=== PATIENT | male | born 1970 ===

== ENCOUNTER 2019-12-21 15:47 | Emergency (ER) | payer MEDICARE, BC, MEDICAID, SELFPAY ==
[2019-12-21 15:51] VITALS: BP 142/89; PULSE 77; RESP 18; TEMP 36.6; O2SAT 100; BMI 35.7
--- NOTE | 2019-12-21 15:56 | ECG_ITS ---
Measurements Intervals [place] Rate: 78 P: [place]: 0 QRS: 48 QRSD: 82 T: 70 QT: 364 QTc: 416 SINUS RHYTHM INDETERMINATE AXIS No previous ECG available for comparison Electronically Signed On 12-21-2019 18:10:35 CDT by Adriana Anna M.D. [id number]
--- NOTE | 2019-12-21 15:56 | XR_ITS ---
WS: [id number] Portable AP upright chest, 12/21/2019 Clinical Data: chest pain Comparison: None. Findings: No nodules, masses or effusions are seen. The heart is normal. The pulmonary vascularity is not increased. No pneumonia or pneumothorax is seen. XR/XR chest 1V portable [id number] Impression: Negative chest.
--- NOTE | 2019-12-21 16:03 | ED_ITS ---
Entered by Ewa Cool, acting as scribe for Higinio Horton DO Documented by User: Olaf Barone DO 12/21/19 21:48 HPI - Chest Pain General: Chief Complaint: Chest Pain Stated Complaint: CP, SOB, coughing up blood Time Seen by Provider: 12/21/19 16:05 [facility] PFSH: Social History Smoking and tobacco status: former smoker Course Vital Signs: Vital signs: Vital Signs Temperature 97.8 F 12/21/19 15:51 Pulse Rate 86 12/21/19 21:50 Respiratory Rate 18 12/21/19 21:50 Blood Pressure 96/64 12/21/19 21:50 Pulse Oximetry 97 12/21/19 21:50 MDM - Chest Pain MDM Narrative: Medical decision making narrative: 49-year-old male with pleuritic chest pain. He has had a cough. He says he coughed up some blood this morning. His physician was worried about a blood clot in his lung. His EKG shows a sinus rhythm with normal axis and no ST changes x2. His troponin d id not change at 2 hours, and is normal essentially. His laboratory is not remarkable otherwise. His CTA of the chest shows no pulmonary embolus, and no other acute finding including a pneumonia or pneumonitis. He will be treated with steroids, his inhaler, and antibiotics. Lab Data: Labs: Lab Results 12/21/19 12/21/19 12/21/19 Range/Units 16:15 16:15 16:15 WBC 9.6 (4.0-10.0) 10^3/ uL RBC 5.87 H (4.1-5.3) 10^6/u L Hgb 18.1 H (11.7-16.6) g/dL Hct 52.8 H (42.0-52.0) % MCV 89.9 (80-94) fL MCH 30.8 (28.0-34.0) pg MCHC 34.3 (30.0-36.0) g/dL RDW 12.9 (12.1-15.1) % Plt Count 246 (130-400) 10^3/c mm MPV 10.5 H (7.4-10.4) fL Neut % (Auto) 62.6 % Lymph % (Auto) 25.5 % [place] % (Auto) 8.4 % Eos % (Auto) 2.7 % Baso % (Auto) 0.5 % Neut # (Auto) 6.0 (1.8-7.7) 10^3/u L Lymph # (Auto) 2.5 (0.8-4.8) 10^3/u L [place] # (Auto) 0.8 (0.2-0.9) 10^3/u L Eos # (Auto) 0.3 (0.0-0.8) 10^3/u L Baso # (Auto) 0.1 (0.0-0.1) 10^3/u L Nucleated RBC % (a uto) 0 % Nucleated RBCs # 0.0 /100WBC Sodium 138 (136-145) mmol/L Potassium 4.4 (3.5-5.1) mmol/L Chloride 100 (98-107) mmol/L Carbon Dioxide 25 (22-29) mmol/L Anion Gap 17.4 (5-19) BUN 20 (6-20) mg/dL Creatinine 1.1 (0.7-1.2) mg/dL GFR Calculation 71.4 L (90-130) mL/min Glucose 108 (65-115) mg/dL Calculated Osmolal ity 283 L (285-295) mOsm/k g Calcium 10.5 (8.5-10.5) mg/dL Total Bilirubin 0.6 (0.15-1.2) mg/dL AST 29 (0-40) U/L ALT 34 (0-41) U/L Alkaline Phosphata se 84 (40-130) IU/L Troponin T Baselin e 8 (0-15) ng/mL Troponin T 120 Min [place] (0-15) ng/mL Delta Troponin T (0-10) ABS# Total Protein 7.8 (6.6-8.7) g/dL Albumin 4.6 (3.5-5.2) g/dL Globulin 3.2 (1.3-4.6) g/dL 12/21/19 Range/Units 18:22 WBC (4.0-10.0) 10^3/ uL RBC (4.1-5.3) 10^6/u L Hgb (11.7-16.6) g/dL Hct (42.0-52.0) % MCV (80-94) fL MCH (28.0-34.0) pg MCHC (30.0-36.0) g/dL RDW (12.1-15.1) % Plt Count (130-400) 10^3/c mm MPV (7.4-10.4) fL Neut % (Auto) % Lymph % (Auto) % [place] % (Auto) % Eos % (Auto) % Baso % (Auto) % Neut # (Auto) (1.8-7.7) 10^3/u L Lymph # (Auto) (0.8-4.8) 10^3/u L [place] # (Auto) (0.2-0.9) 10^3/u L Eos # (Auto) (0.0-0.8) 10^3/u L Baso # (Auto) (0.0-0.1) 10^3/u L Nucleated RBC % (a uto) % Nucleated RBCs # /100WBC Sodium (136-145) mmol/L Potassium (3.5-5.1) mmol/L Chloride (98-107) mmol/L Carbon Dioxide (22-29) mmol/L Anion Gap (5-19) BUN (6-20) mg/dL Creatinine (0.7-1.2) mg/dL GFR Calculation (90-130) mL/min Glucose (65-115) mg/dL Calculated Osmolal ity (285-295) mOsm/k g Calcium (8.5-10.5) mg/dL Total Bilirubin (0.15-1.2) mg/dL AST (0-40) U/L ALT (0-41) U/L Alkaline Phosphata se (40-130) IU/L Troponin T Baselin e (0-15) ng/mL Troponin T 120 Min [place] 7.19 (0-15) ng/mL Delta Troponin T -0.81 L (0-10) ABS# Total Protein (6.6-8.7) g/dL Albumin (3.5-5.2) g/dL Globulin (1.3-4.6) g/dL Discharge Plan Discharge Patient Disposition: Home, Self-Care Clinical Impression: Atypical chest pain, Bronchitis Condition: Stable Prescriptions: New prednisone 20 mg tablet 60 mg PO DAILY Qty: 15 RF: 0 doxycycline hyclate 100 mg capsule 100 mg PO BID 7 Days Qty: 14 RF: 0 [place] 7.5-325 mg tablet 1 tab PO TID PRN (Reason: pain) Qty: 10 RF: 0 No Action albuterol sulfate 2.5 mg /3 mL (0.083 %) solution for nebulization 2.5 mg inhalation Q6H PRN (Reason: Wheezing) RF: 0 ibuprofen 800 mg tablet 800 mg PO TID RF: 0 lisinopril 20 mg tablet 20 mg PO DAILY RF: 0 pantoprazole 40 mg tablet,delayed release (DR/EC) 40 mg PO DAILY RF: 0 nicotine 21 mg/24 hr patch 24 hour See Rx Instructions .ROUTE .COMPLEX RF: 0 gabapentin 300 mg capsule 300 mg PO TID RF: 0 Discharge Orders: Discharge Order (Routine); Ordered 12/21/19 Ordered By: Olaf Barone Discharge Diet: Usual diet Discharge Activity: Increase activity as tolerated Patient Instructions: Pleurisy (ED), Acute Bronchitis (ED) Activity Restrictions/Additional Instructions: Return for worsening pain despite treatment, worsening shortness of breath, other concerning symptoms. Return also for fever greater than 100 despite 3 doses of antibiotics. Use your inhaler every 4 hours while awake scheduled the next 2 days, then as needed. Discharge Date/Time: 12/21/19 21:51 Coding Level of Care Code ED Recruiting Associate for Chg Fwd Documented by User: Higinio Horton DO 12/23/19 23:29 HPI - Chest Pain General: Chief Complaint: Chest Pain Stated Complaint: CP, SOB, coughing up blood Time Seen by Provider: 12/21/19 16:05 Source: patient Mode of arrival: ambulatory Limitations: no limitations History of Present Illness: HPI narrative: 49-year-old male presents with complaints of chest pain and productive cough with some blood in the cough at times mostly streaking of blood. She denies any fever sweats or chills. MD complaint: chest pain and other (shortness of breath, coughing up blood) Onset (ago): day(s) Timing of current episode: still present Prior episodes: Yes Onset: during rest Context: recent illness (pt was recently admitted at [facility] for the same symptoms) Associated symptoms: Reports dyspnea; Deny abdominal pain, fever(s), nausea or vomiting Review of Systems Const: Denies: fever, chills, body aches, change in appetite, fatigue or malaise ENMT: Denies: throat pain, ear pain, nasal discharge or nasal congestion Card: Denies: chest pain, edema, shortness of breath on exertion or shortness of breath when lying down Resp: Reports: shortness of breath and productive cough; Denies: non-productive cough GI: Denies: abdominal pain, nausea, vomiting, vomiting blood, coffee grounds in vomit, diarrhea, constipation, bloating, blood in stool or black tarry stool : Denies: flank pain, painful urination, urinary frequency or urinary urgency Skin/Breast: Denies: rash or itching PFSH ED PFSH: Social History Smoking and tobacco status: former smoker Physical Exam Const: COMMON NORMALS: no apparent distress GENERAL APPEARANCE: cooperative and comfortable ORIENTATION/CONSCIOUSNESS: Yes awake, Yes oriented to person, Yes oriented to place and Yes oriented to time HENMT: COMMON NORMALS: normocephalic, head/scalp atraumatic, hearing grossly normal bilaterally, external ears normal, EAC's normal, TM's normal bilaterally, nasal mucous membranes and turbinates normal, moist oral mucous membranes and oropharynx normal HEAD & SCALP: normocephalic and atraumatic NOSE: nasal mucous membranes and turbinates normal EXTERNAL EAR: Yes external ears normal EXTERNAL AUDITORY CANAL: EAC's normal TYMPANIC MEMBRANE: TM's normal bilaterally Eye: COMMON NORMALS: PERRL, EOMs intact bilaterally, conjunctivae normal and no scleral icterus CONJUNCTIVA: Yes conjunctivae normal PUPIL: Yes PERRL Neck/C-Spine: COMMON NORMALS: full ROM, no lymphadenopathy, supple and no JVD Lymph: LYMPHATIC: no lymphadenopathy noted and no lymphedema noted Resp: COMMON NORMALS: normal respiratory effort, no retractions and no use of accessory muscles AUSCULTATION: rhonchi and wheezes Cardio: COMMON NORMALS: no JVD, regular rate, regular rhythm and no murmurs RATE: regular rate RHYTHM: regular rhythm GI: COMMON NORMALS: soft to palpation and no hepatosplenomegaly AUSCULTATION: Yes normoactive bowel sounds PALPATION: Yes soft, No tender, No guarding and Yes no hepatosplenomegaly Extremity: COMMON NORMALS: normal to inspection, normal capillary refill, no clubbing, cyanosis or edema, no calf tenderness and no pedal edema Neuro: SENSORIUM/ORIENTATION: Yes oriented to person, Yes oriented to place and Yes oriented to time Skin: COMMON NORMALS: no rashes or lesions noted GENERAL SKIN EXAM: no rash es or lesions noted Course ED course: Care transferred to Dr. Barone at change of shift. Vital Signs: Vital signs: Vital Signs Temperature 97.8 F 12/21/19 15:51 Pulse Rate 86 12/21/19 21:50 Respiratory Rate 18 12/21/19 21:50 Blood Pressure 96/64 12/21/19 21:50 Pulse Oximetry 97 12/21/19 21:50 MDM - Chest Pain Lab Data: Labs: Lab Results 12/21/19 12/21/19 12/21/19 Range/Units 16:15 16:15 16:15 WBC 9.6 (4.0-10.0) 10^3/ uL RBC 5.87 H (4.1-5.3) 10^6/u L Hgb 18.1 H (11.7-16.6) g/dL Hct 52.8 H (42.0-52.0) % MCV 89.9 (80-94) fL MCH 30.8 (28.0-34.0) pg MCHC 34.3 (30.0-36.0) g/dL RDW 12.9 (12.1-15.1) % Plt Count 246 (130-400) 10^3/c mm MPV 10.5 H (7.4-10.4) fL Neut % (Auto) 62.6 % Lymph % (Auto) 25.5 % [place] % (Auto) 8.4 % Eos % (Auto) 2.7 % Baso % (Auto) 0.5 % Neut # (Auto) 6.0 (1.8-7.7) 10^3/u L Lymph # (Auto) 2.5 (0.8-4.8) 10^3/u L [place] # (Auto) 0.8 (0.2-0.9) 10^3/u L Eos # (Auto) 0.3 (0.0-0.8) 10^3/u L Baso # (Auto) 0.1 (0.0-0.1) 10^3/u L Nucleated RBC % (a uto) 0 % Nucleated RBCs # 0.0 /100WBC Sodium 138 (136-145) mmol/L Potassium 4.4 (3.5-5.1) mmol/L Chloride 100 (98-107) mmol/L Carbon Dioxide 25 (22-29) mmol/L Anion Gap 17.4 (5-19) BUN 20 (6-20) mg/dL Creatinine 1.1 (0.7-1.2) mg/dL GFR Calculation 71.4 L (90-130) mL/min Glucose 108 (65-115) mg/dL Calculated Osmolal ity 283 L (285-295) mOsm/k g Calcium 10.5 (8.5-10.5) mg/dL Total Bilirubin 0.6 (0.15-1.2) mg/dL AST 29 (0-40) U/L ALT 34 (0-41) U/L Alkaline Phosphata se 84 (40-130) IU/L Troponin T Baselin e 8 (0-15) ng/mL Troponin T 120 Min [place] (0-15) ng/mL Delta Troponin T (0-10) ABS# Total Protein 7.8 (6.6-8.7) g/dL Albumin 4.6 (3.5-5.2) g/dL Globulin 3.2 (1.3-4.6) g/dL / Range/Units 18:22 WBC (4.0-10.0) 10^3/ uL RBC (4.1-5.3) 10^6/u L Hgb (11.7-16.6) g/dL Hct (42.0-52.0) % MCV (80-94) fL MCH (28.0-34.0) pg MCHC (30.0-36.0) g/dL RDW (12.1-15.1) % Plt Count (130-400) 10^3/c mm MPV (7.4-10.4) fL Neut % (Auto) % Lymph % (Auto) % [place] % (Auto) % Eos % (Auto) % Baso % (Auto) % Neut # (Auto) (1.8-7.7) 10^3/u L Lymph # (Auto) (0.8-4.8) 10^3/u L [place] # (Auto) (0.2-0.9) 10^3/u L Eos # (Auto) (0.0-0.8) 10^3/u L Baso # (Auto) (0.0-0.1) 10^3/u L Nucleated RBC % (a uto) % Nucleated RBCs # /100WBC Sodium (136-145) mmol/L Potassium (3.5-5.1) mmol/L Chloride (98-107) mmol/L Carbon Dioxide (22-29) mmol/L Anion Gap (5-19) BUN (6-20) mg/dL Creatinine (0.7-1.2) mg/dL GFR Calculation (90-130) mL/min Glucose (65-115) mg/dL Calculated Osmolal ity (285-295) mOsm/k g Calcium (8.5-10.5) mg/dL Total Bilirubin (0.15-1.2) mg/dL AST (0-40) U/L ALT (0-41) U/L Alkaline Phosphata se (40-130) IU/L Troponin T Baselin e (0-15) ng/mL Troponin T 120 Min [place] 7.19 (0-15) ng/mL Delta Troponin T -0.81 L (0-10) ABS# Total Protein (6.6-8.7) g/dL Albumin (3.5-5.2) g/dL Globulin (1.3-4.6) g/dL Discharge Plan Discharge Patient Disposition: Home, Self-Care Clinical Impression: Atypical chest pain, Bronchitis Condition: Stable Prescriptions: New prednisone 20 mg tablet 60 mg PO DAILY Qty: 15 RF: 0 doxycycline hyclate 100 mg capsule 100 mg PO BID 7 Days Qty: 14 RF: 0 [place] 7.5-325 mg tablet 1 tab PO TID PRN (Reason: pain) Qty: 10 RF: 0 No Action albuterol sulfate 2.5 mg /3 mL (0.083 %) solution for nebulization 2.5 mg inhalation Q6H PRN (Reason: Wheezing) RF: 0 ibuprofen 800 mg tablet 800 mg PO TID RF: 0 lisinopril 20 mg tablet 20 mg PO DAILY RF: 0 pantoprazole 40 mg tablet,delayed release (DR/EC) 40 mg PO DAILY RF: 0 nicotine 21 mg/24 hr patch 24 hour See Rx Instructions .ROUTE .COMPLEX RF: 0 gabapentin 300 mg capsule 300 mg PO TID RF: 0 Discharge Orders: Discharge Order (Routine); Ordered 12/21/19 Ordered By: Olaf Barone Discharge Diet: Usual diet Discharge Activity: Increase activity as tolerated Patient Instructions: Pleurisy (ED), Acute Bronchitis (ED) Activity Restrictions/Additional Instructions: Return for worsening pain despite treatment, worsening shortness of breath, other concerning symptoms. Return also for fever greater than 100 despite 3 doses of antibiotics. Use your inhaler every 4 hours while awake scheduled the next 2 days, then as needed. Discharge Date/Time: 12/21/19 21:51 Coding Level of Care Code ED Recruiting Associate for Chg Fwd The documentation recorded by the Travon saucedo Bridget Annette, accurately reflects the service I personally performed and the decisions made by Clifford henderson Curtis L, DO Dec 21, 2019 15:47
[2019-12-21 16:20] VITALS: O2SAT 98
[2019-12-21 16:24] LABS: Basophils # 0.1 10^3/uL (0.0-0.1); Basophils % 0.5 %; Eosinophils # 0.3 10^3/uL (0.0-0.8); Eosinophils % 2.7 %; Hematocrit 52.8 % (42.0-52.0); Hemoglobin 18.1 g/dL (11.7-16.6); Lymphocytes # 2.5 10^3/uL (0.8-4.8); Lymphocytes % 25.5 %; Mean Corpuscular HGB Conc 34.3 g/dL (30.0-36.0); Mean Corpuscular Hemoglobin 30.8 pg (28.0-34.0); Mean Corpuscular Volume 89.9 fL (80-94); Mean Platelet Volume 10.5 fL (7.4-10.4); Monocytes # 0.8 10^3/uL (0.2-0.9); Monocytes % 8.4 %; Neutrophils % 62.6 %; Nucleated Red Blood Cells % 0 %; Platelet Count 246 10^3/cmm (130-400); Red Blood Count 5.87 10^6/uL (4.1-5.3); Red Cell Distribution Width 12.9 % (12.1-15.1); White Blood Count 9.6 10^3/uL (4.0-10.0)
[2019-12-21 16:41] LABS: Alanine Aminotransferase 34 U/L (0-41); Albumin Level 4.6 g/dL (3.5-5.2); Alkaline Phosphatase 84 IU/L (40-130); Anion Gap 17.4 (5-19); Aspartate Amino Transferase 29 U/L (0-40); Blood Urea Nitrogen 20 mg/dL (6-20); Calcium 10.5 mg/dL (8.5-10.5); Carbon Dioxide 25 mmol/L (22-29); Chloride 100 mmol/L (98-107); Globulin 3.2 g/dL (1.3-4.6); Glomerular Filtration Rate 71.4 mL/min (90-130); Glucose 108 mg/dL (65-115); Osmolality Calculated 283 mOsm/kg (285-295); Potassium 4.4 mmol/L (3.5-5.1); Sodium 138 mmol/L (136-145); Total Bilirubin 0.6 mg/dL (0.15-1.2); Total Protein 7.8 g/dL (6.6-8.7)
[2019-12-21 16:43] LABS: Troponin(5th) Baseline 8 ng/mL (0-15)
[2019-12-21] MEDS: nitroglycerin 1 gm/inch oint Pkt 1 INCH TOPICAL (17:38)
[2019-12-21] MEDS: morphine 4 mg/mL SDV 1 mL 2 MG IVP (17:38)
[2019-12-21 18:43] LABS: Troponin 5 2HR 7.19 ng/mL (0-15)
[2019-12-21 18:45] LABS: Troponin 5 2HR Delta -0.81 ABS# (0-10)
--- NOTE | 2019-12-21 19:04 | CTR_ITS ---
PROCEDURE INFORMATION: Exam: CT Angiography Chest With Contrast Exam date and time: 12/21/2019 7:48 PM Age: 49 years old Clinical indication: Cough and shortness of breath; Cough with hemorrhage; Patient HX: C/O cp, SOB and coughing up blood; Additional info: Chest pain TECHNIQUE: Imaging protocol: Computed tomographic angiography of the chest with intravenous contrast. 3D rendering: MIP and/or 3D reconstructed images were created by the technologist. Total DLP: 545.73 mGy-cm Radiation optimization: All CT scans at this facility use at least one of these dose optimization techniques: automated exposure control; mA and/or kV adjustment per patient size (includes targeted exams where dose is matched to clinical indication); or iterative reconstruction. Contrast material: OMNI 350; Contrast volume: 95 ml; Contrast route: 18G; COMPARISON: CR XR chest 1V portable [id number] 12/21/2019 3:58 PM FINDINGS: Pulmonary arteries: Normal. No pulmonary emboli. Aorta: Unremarkable. No aortic aneurysm. No aortic dissection. Lungs: Mild dependent atelectasis with small areas of air trapping. The lungs are otherwise clear. Pleural space: Unremarkable. No pneumothorax. No pleural effusion. Heart: Unremarkable. No cardiomegaly. No pericardial effusion. Gallbladder and bile ducts: Cholecystectomy. Lymph nodes: Unremarkable. No enlarged lymph nodes. Bones/joints: Unremarkable. No acute fracture. Soft tissues: Unremarkable. CT/CT angio chest PE protcl [id number] IMPRESSION: 1. No evidence for pulmonary embolus or other acute finding. Radiation Dose CTDIVOL = (mGy): DLP = 545.73 (mGy-cm)
[2019-12-21] MEDS: morphine 4 mg/mL SDV 1 mL IVP ×2 (19:28→21:25)
[2019-12-21] MEDS: iohexol 350 mg/mL 100 mL Btl IV (20:07)
[2019-12-21] MEDS: doxycycline 100 mg Tablet PO (21:20)
[2019-12-21 21:50] VITALS: BP 96/64; PULSE 86; RESP 18; O2SAT 97
--- NOTE | 2019-12-21 21:56 | ECG_ITS ---
Measurements Intervals [place] Rate: 76 P: -15 [place]: 146 QRS: 12 QRSD: 86 T: 53 QT: 366 QTc: 412 SINUS RHYTHM No previous ECG available for comparison Electronically Signed On 12-21-2019 18:10:43 CDT by Adriana Anna M.D. [email or web address]
== END 2019-12-21 21:51 | disposition home or self-care (01) ==
PROVIDERS: Emergency Medicine; Emergency Provider Emergency Medicine
DX: J40 Bronchitis, not specified as acute or chronic (principal); R07.89 Other chest pain; Z87.891 Personal history of nicotine dependence
CPT/HCPCS: 12345; 71045; 71275; 80053; 84484; 85025; 93005; 96374; 96375; 96376; 99283; 99284; J2270; J2930; Q9967